=== PATIENT | female | born 1935 | race Caucasian/White ===

== ENCOUNTER 2017-04-30 08:37 | Inpatient (IN) | payer OTHER ==
[~2017-04-30] VITALS: Ht 142.2 cm; Wt 72.8 kg
[~2017-04-30 08:37] MED LIST: ATROVASTATIN PO; CALCIUM PO; CENTRUM SILVER; COL100 PO; COZ50 PO; DUL10S RC; FER300 PO; FERG PO; L20 PO; LAC30L PO; LOSARTAN/HCTZ; LOVAZA PO; PAIN RELIEVER500 M2 PO; PHE25 PO; PRO40 PO; SYN88 PO; TUMS CH; TYL325; TYLENOL PO; ULORIC PO; VESICARE PO; ZOF4 PO
[2017-04-30] MEDS ORDERED: COZAAR100 MG PO (09:05)
[2017-04-30] MEDS ORDERED: ZANTAC 150150 MG PO (09:05)
[2017-04-30] MEDS ORDERED: TRADJENTA5 M1 PO (09:05)
[2017-04-30] MEDS ORDERED: METOPROLOL TART50 MG PO (09:05)
[2017-04-30] MEDS ORDERED: BIOTIN1 POW (09:06)
[2017-04-30] MEDS ORDERED: AMOXICILLIN875 MG PO (09:06)
[2017-04-30 09:23] LABS: BASOPHIL % 0.1 % (0-2); PLATELET COUNT 219 x10^3mcL (130-400); RED CELL DISTRIBUTION WIDTH 13.5 % (11.5-14.5)
[2017-04-30 09:41] LABS: ALKALINE PHOSPHATASE 109 U/L (46-116); ALT/SGPT 23 U/L (14-59); AST/SGOT 25 U/L (15-37); BILIRUBIN TOTAL 0.3 mg/dL (0.20-1.00); CALCIUM 8.7 mg/dL (8.5-10.1); CHLORIDE SERUM 93 mmol/L (98-107); CREATININE SERUM 2.1 mg/dL (0.6-1.0); GLUCOSE SERUM 144 mg/dL (74-106); POTASSIUM SERUM 4.5 mmol/L (3.5-5.1); SODIUM SERUM 125 mmol/L (136-145); TOTAL PROTEIN, SERUM 7.7 g/dL (6.4-8.2)
[2017-04-30 09:42] LABS: ALBUMIN 3.1 g/dL (3.4-5.0)
[2017-04-30 10:37] VITALS: BP 131/56
[2017-04-30 10:57] LABS: CHOLESTEROL/HDL RATIO 2.2
[2017-04-30 11:03] LABS: FREE T4 1.56 ng/dL (0.76-1.46); FREE THYROXINE INDEX 3.8 ug/dL (1.4-4.5); T4(THYROXINE) 10.6 ug/dL (4.7-13.3)
[2017-04-30 11:06] LABS: T3 TOTAL 0.7 ng/mL
[2017-04-30] MEDS ORDERED: METOPROLOL TART25 M1 PO (11:57)
[2017-04-30 13:40] VITALS: BP 131/56
[2017-04-30 17:50] VITALS: BP 122/63
[2017-04-30 21:15] VITALS: BP 116/53
[2017-05-01 00:19] LABS: microscopic required? NO
[2017-05-01 00:29] LABS: UA SPECIFIC GRAVITY <=1.005 (1.005-1.035); urine erythrocyte NEGATIVE (NEGATIVE)
[2017-05-01 00:36] LABS: CALCIUM 8.5 mg/dL (8.5-10.1); CARBON DIOXIDE 24.5 mmol/L (21-32); CHLORIDE SERUM 96 mmol/L (98-107); GLUCOSE SERUM 119 mg/dL (74-106); POTASSIUM SERUM 5.3 mmol/L (3.5-5.1); SODIUM SERUM 126 mmol/L (136-145)
[2017-05-01 05:26] VITALS: BP 101/49
[2017-05-01 06:42] LABS: CALCIUM 8.8 mg/dL (8.5-10.1); CARBON DIOXIDE 20.6 mmol/L (21-32); CHLORIDE SERUM 95 mmol/L (98-107); GLUCOSE SERUM 94 mg/dL (74-106); MAGNESIUM 1.9 mg/dL (1.8-2.4); PHOSPHOROUS 4.2 mg/dL (2.5-4.9); POTASSIUM SERUM 4.4 mmol/L (3.5-5.1); SODIUM SERUM 127 mmol/L (136-145)
[2017-05-01 06:56] LABS: BASOPHIL % 0.3 % (0-2); PLATELET COUNT 201 x10^3mcL (130-400)
[2017-05-01 10:10] VITALS: BP 112/45
[2017-05-01 12:30] VITALS: BP 118/42
[2017-05-01 13:25] VITALS: BP 141/43
[2017-05-01 18:23] VITALS: BP 98/56
[2017-05-01 21:44] VITALS: BP 98/65
[2017-05-02 05:46] VITALS: BP 114/59
[2017-05-02 07:29] LABS: BASOPHIL % 0.5 % (0-2); PLATELET COUNT 199 x10^3mcL (130-400); RED CELL DISTRIBUTION WIDTH 14.1 % (11.5-14.5)
[2017-05-02 08:36] LABS: CALCIUM 8.6 mg/dL (8.5-10.1); CARBON DIOXIDE 23.5 mmol/L (21-32); CHLORIDE SERUM 96 mmol/L (98-107); CREATININE SERUM 2.2 mg/dL (0.6-1.0); GLUCOSE SERUM 102 mg/dL (74-106); MAGNESIUM 1.7 mg/dL (1.8-2.4); PHOSPHOROUS 4.3 mg/dL (2.5-4.9); POTASSIUM SERUM 4.3 mmol/L (3.5-5.1); SODIUM SERUM 129 mmol/L (136-145)
[2017-05-02 08:52] VITALS: BP 114/59
[2017-05-02 09:48] VITALS: BP 122/58
[2017-05-02 12:56] VITALS: BP 105/53
[2017-05-02 17:42] VITALS: BP 142/77
[2017-05-02 20:19] VITALS: BP 125/63
[2017-05-03 06:46] LABS: CALCIUM 8.8 mg/dL (8.5-10.1); CARBON DIOXIDE 25.3 mmol/L (21-32); CHLORIDE SERUM 93 mmol/L (98-107); CREATININE SERUM 2.2 mg/dL (0.6-1.0); GLUCOSE SERUM 90 mg/dL (74-106); MAGNESIUM 2.2 mg/dL (1.8-2.4); PHOSPHOROUS 4.2 mg/dL (2.5-4.9); POTASSIUM SERUM 4.4 mmol/L (3.5-5.1); SODIUM SERUM 125 mmol/L (136-145)
[2017-05-03 06:47] LABS: BASOPHIL % 0.4 % (0-2); PLATELET COUNT 254 x10^3mcL (130-400); RED CELL DISTRIBUTION WIDTH 13.6 % (11.5-14.5)
[2017-05-03 06:54] VITALS: BP 122/60
[2017-05-03 09:26] VITALS: BP 122/60
[2017-05-03 09:32] VITALS: BP 113/40
[2017-05-03] MEDS ORDERED: XARELTO15 M1 PO (11:04)
[2017-05-03] MEDS ORDERED: METOPROLOL TART25 M1 PO (11:05)
[2017-05-03] MEDS ORDERED: COZ50 PO (11:06)
[2017-05-03] MEDS ORDERED: L20 PO (11:06)
[2017-05-03] MEDS ORDERED: SYN88 PO (11:08)
[2017-05-03] MEDS ORDERED: COR200 PO (11:08)
[2017-05-03] MEDS ORDERED: LIPI10 PO (11:09)
[2017-05-03] MEDS ORDERED: METHOCARBAMOL500 MG PO (11:13)
[2017-05-03] MEDS ORDERED: ASPIR 8181 MG PO (14:45)
== END 2017-05-03 14:10 | disposition home health service (06) | DRG 205 ==
LOC: ED 08:37 → DU 09:37
PROVIDERS: Emergency Medicine; Family Medicine; ADMIT Family Medicine
DX: M94.0 Chondrocostal junction syndrome [Tietze] (principal); N17.0 Acute kidney failure with tubular necrosis; N18.6 End stage renal disease; I12.0 Hypertensive chronic kidney disease with stage 5 chronic kidney disease or end stage renal disease; E87.1 Hypo-osmolality and hyponatremia; D68.69 Other thrombophilia; E11.9 Type 2 diabetes mellitus without complications; E11.51 Type 2 diabetes mellitus with diabetic peripheral angiopathy without gangrene; M10.9 Gout, unspecified; H66.92 Otitis media, unspecified, left ear; E66.9 Obesity, unspecified; E03.9 Hypothyroidism, unspecified; Z66 Do not resuscitate; Z96.641 Presence of right artificial hip joint; Z68.36 Body mass index [BMI] 36.0-36.9, adult; Z96.653 Presence of artificial knee joint, bilateral; Z79.84 Long term (current) use of oral hypoglycemic drugs
CPT/HCPCS: 82962; 83880; 84439; J2270; J2405; J3475; J3490; J7030; Q0092

== ENCOUNTER 2018-04-23 16:38 | Inpatient (IN) | payer OTHER ==
[~2018-04-23] VITALS: Ht 142.2 cm; Wt 61.4 kg
[~2018-04-23 16:38] MED LIST changes: +AMOXICILLIN875 MG PO; +ASPIR 8181 MG PO; +BIOTIN1 POW; +COR200 PO; +COZAAR100 MG PO; +LIPI10 PO; +METHOCARBAMOL500 MG PO; +METOPROLOL TART25 M1 PO; +METOPROLOL TART50 MG PO; +TRADJENTA5 M1 PO; +XARELTO15 M1 PO; +ZANTAC 150150 MG PO
[2018-04-23 17:14] LABS: BASOPHIL % 0.1 % (0-2); PLATELET COUNT 221 x10^3mcL (130-400)
[2018-04-23 17:17] LABS: RED CELL DISTRIBUTION WIDTH 14.8 % (11.5-14.5)
[2018-04-23 17:21] LABS: CALCIUM 8.8 mg/dL (8.5-10.1); CARBON DIOXIDE 29.1 mmol/L (21-32); CHLORIDE SERUM 97 mmol/L (98-107); GLUCOSE SERUM 127 mg/dL (74-106); POTASSIUM SERUM 4.3 mmol/L (3.5-5.1); SODIUM SERUM 134 mmol/L (136-145)
[2018-04-23 17:26] LABS: ALKALINE PHOSPHATASE 136 U/L (46-116); ALT/SGPT 18 U/L (14-59); AST/SGOT 24 U/L (15-37); BILIRUBIN TOTAL 0.3 mg/dL (0.20-1.00); LIPASE 170 IU/L (73-393); TOTAL PROTEIN, SERUM 8.1 g/dL (6.4-8.2)
[2018-04-23 17:58] LABS: UA SPECIFIC GRAVITY <=1.005 (1.005-1.035); microscopic required? YES; urine erythrocyte NEGATIVE (NEGATIVE)
[2018-04-23 19:05] LABS: MAGNESIUM 1.9 mg/dL (1.8-2.4); PHOSPHOROUS 4.3 mg/dL (2.5-4.9)
[2018-04-23 19:15] LABS: FREE T4 1.05 ng/dL (0.76-1.46); T3 TOTAL 1.08 ng/mL; T4(THYROXINE) 8.4 ug/dL (4.7-13.3)
[2018-04-23] MEDS ORDERED: FUROSEMIDE40 MG PO (19:47)
[2018-04-23] MEDS ORDERED: GABAPENTIN100 M2 PO (19:58)
[2018-04-23] MEDS ORDERED: ELIQUIS2.5 MG PO (19:59)
[2018-04-23 20:41] VITALS: BP 150/55
[2018-04-23 21:03] LABS: RED BLOOD CELLS 3.25 M/mm3 (4.10-5.10)
[2018-04-23 21:49] LABS: IRON 46 ug/dL (50-170); TOTAL IRON BINDING CAPACITY 279 ug/dL (250-450)
[2018-04-24 05:32] VITALS: BP 135/52
[2018-04-24 06:07] LABS: BASOPHIL % 0.2 % (0-2); PLATELET COUNT 216 x10^3mcL (130-400); RED CELL DISTRIBUTION WIDTH 14.5 % (11.5-14.5)
[2018-04-24 06:27] LABS: CALCIUM 9.3 mg/dL (8.5-10.1); CARBON DIOXIDE 28.6 mmol/L (21-32); CHLORIDE SERUM 104 mmol/L (98-107); CREATININE SERUM 1.9 mg/dL (0.6-1.0); GLUCOSE SERUM 94 mg/dL (74-106); HDL CHOLESTEROL 51 mg/dL (40-60); PHOSPHOROUS 4.3 mg/dL (2.5-4.9); POTASSIUM SERUM 3.8 mmol/L (3.5-5.1); SODIUM SERUM 139 mmol/L (136-145); TRIGLYCERIDES 49 mg/dL (<150)
[2018-04-24 06:47] LABS: CHOLESTEROL 118 mg/dL (<200); CHOLESTEROL/HDL RATIO 2.3
[2018-04-24 09:01] VITALS: BP 109/46
[2018-04-24 12:53] VITALS: BP 125/43
[2018-04-24 17:13] VITALS: BP 100/37
[2018-04-24 21:32] VITALS: BP 99/48
[2018-04-25 05:22] VITALS: BP 99/48
[2018-04-25 05:33] VITALS: BP 128/56
[2018-04-25 06:23] LABS: BASOPHIL % 0.3 % (0-2); PLATELET COUNT 198 x10^3mcL (130-400); RED CELL DISTRIBUTION WIDTH 14.5 % (11.5-14.5)
[2018-04-25 06:46] LABS: CALCIUM 8.5 mg/dL (8.5-10.1); CARBON DIOXIDE 27.3 mmol/L (21-32); CHLORIDE SERUM 105 mmol/L (98-107); CREATININE SERUM 2.1 mg/dL (0.6-1.0); GLUCOSE SERUM 95 mg/dL (74-106); SODIUM SERUM 137 mmol/L (136-145)
[2018-04-25] MEDS ORDERED: CLEOCIN HCL300 MG PO (07:34)
[2018-04-25] MEDS ORDERED: LEVOFLOXACIN500 M1 PO (07:34)
[2018-04-25] MEDS ORDERED: LAC PO (07:35)
[2018-04-25 09:04] VITALS: BP 99/35
[2018-04-25 12:06] VITALS: Ht 142.2 cm; Wt 61.4 kg
[2018-04-25 12:08] VITALS: BP 99/35
[2018-04-25] MEDS ORDERED: HIB480 TOP (12:17)
[2018-04-25] MEDS ORDERED: BACTROBAN21 (12:17)
== END 2018-04-25 12:30 | disposition home or self-care (01) | DRG 177 ==
LOC: ED 16:38 → DU 19:22
PROVIDERS: Emergency Medicine; Family Medicine
DX: J69.0 Pneumonitis due to inhalation of food and vomit (principal); N17.0 Acute kidney failure with tubular necrosis; N39.0 Urinary tract infection, site not specified; E87.1 Hypo-osmolality and hyponatremia; E44.0 Moderate protein-calorie malnutrition; N18.4 Chronic kidney disease, stage 4 (severe); M94.0 Chondrocostal junction syndrome [Tietze]; I87.8 Other specified disorders of veins; I48.2 Chronic atrial fibrillation; E11.42 Type 2 diabetes mellitus with diabetic polyneuropathy; I10 Essential (primary) hypertension; E78.5 Hyperlipidemia, unspecified; D64.9 Anemia, unspecified; E03.9 Hypothyroidism, unspecified; M10.9 Gout, unspecified; Z68.28 Body mass index [BMI] 28.0-28.9, adult; Z22.322 Carrier or suspected carrier of Methicillin resistant Staphylococcus aureus
CPT/HCPCS: 82962; 83880; 84439; 85378; 94150; J0456; J0696; J1940; J2543; J7030; J7050; J7620; Q0092

== ENCOUNTER 2018-05-21 08:22 | Emergency (ER) | payer OTHER ==
[~2018-05-21] VITALS: Ht 162.6 cm; Wt 63.5 kg
[~2018-05-21 08:22] MED LIST changes: +BACTROBAN21; +CLEOCIN HCL300 MG PO; +ELIQUIS2.5 MG PO; +FUROSEMIDE40 MG PO; +GABAPENTIN100 M2 PO; +HIB480 TOP; +LAC PO; +LEVOFLOXACIN500 M1 PO
[2018-05-21 08:29] VITALS: Ht 162.6 cm; Wt 63.5 kg
[2018-05-21 11:18] VITALS: BP 117/71
== END 2018-05-21 11:35 | disposition home or self-care (01) ==
LOC: ED 08:22
DX: H53.2 Diplopia (principal); I10 Essential (primary) hypertension; E11.9 Type 2 diabetes mellitus without complications; E78.00 Pure hypercholesterolemia, unspecified; E03.9 Hypothyroidism, unspecified

== ENCOUNTER 2018-10-15 15:03 | Inpatient (IN) | payer OTHER ==
[~2018-10-15] VITALS: Ht 142.2 cm; Wt 71.3 kg
[2018-10-15 15:06] VITALS: Ht 142.2 cm; Wt 71.3 kg
[2018-10-15 15:59] LABS: PLATELET COUNT 240 x10^3mcL (130-400)
[2018-10-15 16:02] LABS: BASOPHIL % 0 % (0-2); RED CELL DISTRIBUTION WIDTH 16.4 % (11.5-14.5)
[2018-10-15 17:19] LABS: CALCIUM 9.1 mg/dL (8.5-10.1); CARBON DIOXIDE 28.3 mmol/L (21-32); CHLORIDE SERUM 100 mmol/L (98-107); CREATININE SERUM 2.1 mg/dL (0.6-1.0); GLUCOSE SERUM 195 mg/dL (74-106); SODIUM SERUM 137 mmol/L (136-145)
[2018-10-15 17:25] LABS: ALKALINE PHOSPHATASE 97 U/L (46-116); ALT/SGPT 38 U/L (14-59); AST/SGOT 46 U/L (15-37); BILIRUBIN TOTAL 0.44 mg/dL (0.20-1.00); TOTAL PROTEIN, SERUM 7.4 g/dL (6.4-8.2)
[2018-10-15 17:27] LABS: ALBUMIN 2.6 g/dL (3.4-5.0)
[2018-10-15] MEDS ORDERED: LEVOTHYROXIN0.025 M2 ×2 (19:09→19:11)
[2018-10-15] MEDS ORDERED: CYTOMEL (19:10)
[2018-10-15] MEDS ORDERED: GABAPENTIN100 M2 (19:12)
[2018-10-15] MEDS ORDERED: TOPROL XL25 MG (19:12)
[2018-10-15] MEDS ORDERED: OMEGA 3 500 SO1 EACH (19:13)
[2018-10-15] MEDS ORDERED: MASON NATURAL1200 MG (19:13)
[2018-10-15] MEDS ORDERED: [UNRECOGNIZED DRUG - CODE] (19:13)
[2018-10-15 20:46] LABS: CHOLESTEROL/HDL RATIO 2.9
[2018-10-15 21:44] LABS: T3 TOTAL 0.87 ng/mL
[2018-10-15 22:08] VITALS: BP 136/69
[2018-10-15 22:11] LABS: FREE T4 0.84 ng/dL (0.76-1.46)
[2018-10-15 22:12] LABS: FREE THYROXINE INDEX 1.6 ug/dL (1.4-4.5); T4(THYROXINE) 4.4 ug/dL (4.7-13.3)
[2018-10-15 23:39] LABS: UA SPECIFIC GRAVITY <=1.005 (1.005-1.035); microscopic required? YES; urine erythrocyte NEGATIVE (NEGATIVE)
[2018-10-16 00:20] LABS: AMPHETAMINE QUAL UR NONE DETECTED (See below)
[2018-10-16 05:04] VITALS: BP 136/69
[2018-10-16 05:43] VITALS: BP 104/54
[2018-10-16 08:49] VITALS: BP 128/63
[2018-10-16 12:23] VITALS: BP 149/68
[2018-10-16 17:03] VITALS: BP 108/61
[2018-10-16 19:10] VITALS: BP 108/57
[2018-10-17 06:01] VITALS: BP 119/57
[2018-10-17 06:11] LABS: BASOPHIL % 0.1 % (0-2); PLATELET COUNT 234 x10^3mcL (130-400)
[2018-10-17 06:56] LABS: RED CELL DISTRIBUTION WIDTH 16.5 % (11.5-14.5)
[2018-10-17 07:06] LABS: CALCIUM 8.6 mg/dL (8.5-10.1); CARBON DIOXIDE 25.3 mmol/L (21-32); CHLORIDE SERUM 100 mmol/L (98-107); GLUCOSE SERUM 113 mg/dL (74-106); MAGNESIUM 1.7 mg/dL (1.8-2.4); POTASSIUM SERUM 3.6 mmol/L (3.5-5.1); SODIUM SERUM 137 mmol/L (136-145)
[2018-10-17 08:35] VITALS: BP 109/53
[2018-10-17 11:57] VITALS: BP 120/56
[2018-10-17 16:38] VITALS: BP 103/54
[2018-10-17 19:15] VITALS: BP 106/52
[2018-10-17 20:51] VITALS: BP 110/46
[2018-10-18 06:18] VITALS: BP 99/44
[2018-10-18 08:29] VITALS: BP 103/52
[2018-10-18 08:30] LABS: BASOPHIL % 0.2 % (0-2); PLATELET COUNT 245 x10^3mcL (130-400)
[2018-10-18 08:33] LABS: CARBON DIOXIDE 28.6 mmol/L (21-32); CHLORIDE SERUM 101 mmol/L (98-107); CREATININE SERUM 1.7 mg/dL (0.6-1.0); GLUCOSE SERUM 102 mg/dL (74-106); MAGNESIUM 1.8 mg/dL (1.8-2.4); PHOSPHOROUS 3.8 mg/dL (2.5-4.9); POTASSIUM SERUM 3.5 mmol/L (3.5-5.1); SODIUM SERUM 139 mmol/L (136-145)
[2018-10-18 08:40] LABS: RED CELL DISTRIBUTION WIDTH 16.5 % (11.5-14.5)
[2018-10-18 12:52] VITALS: BP 112/60
[2018-10-18 16:19] VITALS: BP 106/59
[2018-10-18 19:20] VITALS: BP 123/62
[2018-10-19] VITALS (7 sets, daily range): BP systolic 108–119; BP diastolic 54–62
[2018-10-19 07:39] LABS: CALCIUM 8.8 mg/dL (8.5-10.1); CARBON DIOXIDE 30.1 mmol/L (21-32); CHLORIDE SERUM 99 mmol/L (98-107); CREATININE SERUM 1.8 mg/dL (0.6-1.0); GLUCOSE SERUM 124 mg/dL (74-106); MAGNESIUM 1.8 mg/dL (1.8-2.4); PHOSPHOROUS 3.6 mg/dL (2.5-4.9); POTASSIUM SERUM 3.7 mmol/L (3.5-5.1); SODIUM SERUM 136 mmol/L (136-145)
[2018-10-19 07:51] LABS: BASOPHIL % 0.1 % (0-2); PLATELET COUNT 259 x10^3mcL (130-400)
[2018-10-19 07:54] LABS: RED CELL DISTRIBUTION WIDTH 16.6 % (11.5-14.5)
[2018-10-20 05:20] VITALS: BP 116/51
[2018-10-20 07:36] LABS: BASOPHIL % 0.1 % (0-2); PLATELET COUNT 272 x10^3mcL (130-400)
[2018-10-20 07:44] LABS: RED CELL DISTRIBUTION WIDTH 16.3 % (11.5-14.5)
[2018-10-20 07:54] LABS: CALCIUM 9.1 mg/dL (8.5-10.1); CARBON DIOXIDE 29.6 mmol/L (21-32); CHLORIDE SERUM 98 mmol/L (98-107); CREATININE SERUM 1.7 mg/dL (0.6-1.0); GLUCOSE SERUM 107 mg/dL (74-106); MAGNESIUM 1.7 mg/dL (1.8-2.4); PHOSPHOROUS 3.9 mg/dL (2.5-4.9); POTASSIUM SERUM 3.4 mmol/L (3.5-5.1); SODIUM SERUM 138 mmol/L (136-145)
[2018-10-20 09:33] VITALS: BP 110/54
[2018-10-20 10:30] VITALS: BP 113/54
[2018-10-20 13:07] VITALS: BP 112/63
[2018-10-20 17:26] VITALS: BP 105/67
[2018-10-20 21:13] VITALS: BP 121/54
[2018-10-21 06:01] VITALS: BP 110/62
[2018-10-21 07:03] LABS: BASOPHIL % 0.4 % (0-2); PLATELET COUNT 279 x10^3mcL (130-400); RED CELL DISTRIBUTION WIDTH 16.3 % (11.5-14.5)
[2018-10-21 07:41] LABS: CALCIUM 9.1 mg/dL (8.5-10.1); CARBON DIOXIDE 31.1 mmol/L (21-32); CHLORIDE SERUM 97 mmol/L (98-107); CREATININE SERUM 1.8 mg/dL (0.6-1.0); GLUCOSE SERUM 137 mg/dL (74-106); MAGNESIUM 1.8 mg/dL (1.8-2.4); PHOSPHOROUS 3.5 mg/dL (2.5-4.9); POTASSIUM SERUM 3.3 mmol/L (3.5-5.1); SODIUM SERUM 138 mmol/L (136-145)
[2018-10-21 09:19] VITALS: BP 109/54
[2018-10-21 13:50] VITALS: BP 110/59
[2018-10-21 17:08] VITALS: BP 152/84
[2018-10-21 21:51] VITALS: BP 187/60; BP 87/60
[2018-10-22 04:07] VITALS: BP 87/60
[2018-10-22 05:43] VITALS: BP 97/54
[2018-10-22 07:32] LABS: BASOPHIL % 0.1 % (0-2); PLATELET COUNT 325 x10^3mcL (130-400)
[2018-10-22 07:40] LABS: RED CELL DISTRIBUTION WIDTH 15.9 % (11.5-14.5)
[2018-10-22 08:03] LABS: CALCIUM 9.5 mg/dL (8.5-10.1); CARBON DIOXIDE 31.7 mmol/L (21-32); CHLORIDE SERUM 97 mmol/L (98-107); CREATININE SERUM 2.1 mg/dL (0.6-1.0); GLUCOSE SERUM 108 mg/dL (74-106); MAGNESIUM 1.9 mg/dL (1.8-2.4); PHOSPHOROUS 4.4 mg/dL (2.5-4.9); SODIUM SERUM 138 mmol/L (136-145)
[2018-10-22 08:07] LABS: POTASSIUM SERUM 2.8 mmol/L (3.5-5.1)
[2018-10-22 08:20] LABS: IRON 37 ug/dL (50-170)
[2018-10-22 08:22] LABS: TOTAL IRON BINDING CAPACITY 186 ug/dL (250-450)
[2018-10-22 10:00] VITALS: BP 114/64
[2018-10-22] MEDS ORDERED: Z5 PO (11:51)
[2018-10-22 13:13] VITALS: BP 114/64
[2018-10-22 13:17] VITALS: BP 97/52
== END 2018-10-22 18:38 | DRG 177 ==
LOC: ED 15:03 → DU 18:18
PROVIDERS: Emergency Medicine; Family Medicine; Internal Medicine; Internal Medicine Nephrology
DX: J69.0 Pneumonitis due to inhalation of food and vomit (principal); I50.43 Acute on chronic combined systolic (congestive) and diastolic (congestive) heart failure; J96.21 Acute and chronic respiratory failure with hypoxia; N17.0 Acute kidney failure with tubular necrosis; E43 Unspecified severe protein-calorie malnutrition; D68.59 Other primary thrombophilia; I13.0 Hypertensive heart and chronic kidney disease with heart failure and stage 1 through stage 4 chronic kidney disease, or unspecified chronic kidney disease; E78.5 Hyperlipidemia, unspecified; E03.9 Hypothyroidism, unspecified; I48.2 Chronic atrial fibrillation; E11.65 Type 2 diabetes mellitus with hyperglycemia; Z79.84 Long term (current) use of oral hypoglycemic drugs; Z68.29 Body mass index [BMI] 29.0-29.9, adult; Z79.01 Long term (current) use of anticoagulants; E78.00 Pure hypercholesterolemia, unspecified; M10.9 Gout, unspecified; Z83.3 Family history of diabetes mellitus; E11.22 Type 2 diabetes mellitus with diabetic chronic kidney disease; N18.9 Chronic kidney disease, unspecified; E87.6 Hypokalemia
CPT/HCPCS: 82962; 83880; 84439; 87804; 94150; 97110-GP; 97116-GP; 97530-GP; J0456; J0696; J1940; J2543; J3480; J3490; J7030; J7620; Q0092